=== PATIENT | female | born 1990 | race Caucasian/White ===

== ENCOUNTER 2022-02-26 17:33 | Emergency (ER) | payer OTHER ==
[2022-02-26 19:04] LABS: Absolute Lymphocytes (CBC) 2.4 K/uL (0.7-4.9)
[2022-02-26 19:16] LABS: Hematocrit 39.7 % (36.0-45.0); Lymphocytes % 35.9 % (15.3-44.8); MCV 90.2 fL (80-100); MPV 9.2 fL (7.6-11.3)
[2022-02-26 19:17] LABS: ALT/SGPT 15 U/L (13-56); AST/SGOT 8 U/L (15-37); Albumin 3.6 g/dL (3.4-5.0); Alkaline Phosphatase 37 U/L (45-117); BUN Blood Urea Nitrogen 13 mg/dL (7-18); Bicarbonate 26 mmol/L (21-32); Bilirubin Total 0.3 mg/dL (0.2-1.0); Glomerular Filtration Rate 113 ml/min (=/>90); Glucose Level 217 mg/dL (74-106); Lipase 103 U/L (73-393); Potassium 3.7 mmol/L (3.5-5.1); Protein, Total 6.9 g/dL (6.4-8.2); Sodium Level 138 mmol/L (136-145)
[2022-02-26 19:25] LABS: Urine Blood Negative (Negative); Urine Glucose 2+ (Negative); Urine Protein Negative (Negative)
[2022-02-26] MEDS ORDERED: NA CHLORIDE 0.9% 1,000 ML ONE (19:40)
[2022-02-26 19:51] LABS: Urine Bacteria None Seen /HPF (<20); Urine RBC <5 /HPF (None Seen)
[2022-02-26 20:28] LABS: SARS-COV-2 RT PCR NEGATIVE (NEGATIVE)
--- NOTE | 2022-02-26 21:01 | EDPHYS ---
Physician Documentation [facility] Name: Deloris Spencer Age: 31 yrs Sex: Female : 1990 Arrival Date: 02/26/2022 Time: 17:44 Bed 3 Private MD: ED Physician Segundo Oliveira HPI: 02/26 18:45 This 31 yrs old Female presents to ER via Ambulatory with complaints of Possible DKA. cp 18:45 The patient or guardian reports hyperglycemia, that was potentially precipitated by no cp particular event. Onset: The symptoms/episode began/occurred 1 week(s) ago. Associated signs and symptoms: Pertinent positives: nausea, Pertinent negatives: diarrhea, vomiting. 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 - Social history:: Smoking status: unknown. ROS: 18:50 Constitutional: Negative for body aches, chills, fever, poor PO intake. cp 18:50 Eyes: Negative for injury, pain, redness, and discharge. cp 18:50 ENT: Negative for drainage from ear(s), ear pain, sore throat, difficulty swallowing, difficulty handling secretions. 18:50 Cardiovascular: Negative for chest pain, palpitations. 18:50 Respiratory: Negative for cough, shortness of breath, wheezing. 18:50 Abdomen/GI: Positive for nausea, Negative for abdominal pain, vomiting, diarrhea, constipation. 18:50 Neuro: Negative for altered mental status, headache, syncope, weakness. 18:50 All other systems are negative. Exam: 18:55 Constitutional: The patient appears in no acute distress, alert, awake, comfortable, cp non-toxic, well developed, well nourished. 18:55 Head/Face: Normocephalic, atraumatic. cp 18:55 Eyes: Periorbital structures: appear normal, Conjunctiva: normal, no exudate, no injection, Sclera: no appreciated abnormality, Lids and lashes: appear normal, bilaterally. 18:55 ENT: External ear(s): are unremarkable, Nose: is normal, Mouth: Lips: moist, Oral mucosa: pink and intact, moist, Posterior pharynx: is normal, airway is patent, no erythema, no exudate. 18:55 Neck: ROM/movement: is normal, is supple, without pain, no range of motions limitations. 18:55 Chest/axilla: Inspection: normal. 18:55 Cardiovascular: Rate: normal, Rhythm: regular. 18:55 Respiratory: the patient does not display signs of respiratory distress, Respirations: normal, no use of accessory muscles, no retractions, labored breathing, is not present, Breath sounds: are clear throughout, no decreased breath sounds, no stridor, no wheezing. 18:55 Abdomen/GI: Inspection: abdomen appears normal, Palpation: abdomen is soft and non-tender, in all quadrants. 18:55 Back: pain, is absent, ROM is normal. 18:55 Skin: cellulitis, is not appreciated, consistent with psoriasis, and is diffusely located. 18:55 Neuro: Orientation: to person, place \T\ time. Mentation: is normal, Motor: moves all fours, strength is normal, Sensation: is normal. Vital Signs: 18:15 BP 120 / 84; Pulse 80; Resp 18; Temp 97.9(O); Pulse Ox 100% on R/A; Weight 69.4 kg; db Height 5 ft. 6 in. (167.64 cm); Pain 5/10; 19:27 BP 112 / 78; Pulse 85; Resp 19 S; Pulse Ox 100% on R/A; as6 20:48 BP 107 / 77; Pulse 77; Resp 20 S; Pulse Ox 99% on R/A; as6 18:15 Body Mass Index 24.69 (69.40 kg, 167.64 cm) db MDM: 18:22 Patient medically screened. cp 21:00 Data reviewed: vital signs, nurses notes, lab test result(s). cp 21:00 Consideration of Admission/Observation Escalation of care including cp admission/observation considered. Care significantly affected by the following chronic conditions: Diabetes. Counseling: I had a detailed discussion with the patient and/or guardian regarding: the historical points, exam findings, and any diagnostic results supporting the discharge/admit diagnosis, lab results, to return to the emergency department if symptoms worsen or persist or if there are any questions or concerns that arise at home. 02/26 18:32 Order name: Glucose, Ancillary Testing; Complete Time: 18:37 EDCT 02/26 18:37 Order name: CBC with Diff; Complete Time: 19:31 cp 02/26 19:31 Interpretation: Normal except: EOSINOPHIL % 5.3. 02/26 18:37 Order name: CMP; Complete Time: 19:31 cp 02/26 20:35 Interpretation: Normal except: GLUC 217; AST 8; ALK 37. 02/26 18:37 Order name: Lipase; Complete Time: 19:31 cp 02/26 18:37 Order name: Urine Microscopic Only; Complete Time: 20:34 cp 02/26 20:34 Interpretation: Reviewed. 02/26 18:37 Order name: Ketone, Serum; Complete Time: 19:31 cp 02/26 19:16 Interpretation: Reviewed. 02/26 18:37 Order name: IV Saline Lock; Complete Time: 18:57 02/26 18:37 Order name: Labs collected and sent; Complete Time: 18:57 cp 02/26 19:16 Order name: COVID-19/FLU A+B; Complete Time: 20:34 cp 02/26 19:25 Order name: Urine Dipstick-Ancillary; Complete Time: 19:31 EDCT 02/26 19:39 Order name: Urine --Ancillary (enter results); Complete Time: 20:34 wm Administered Medications: 19:41 Drug: NS 0.9% 1000 ml Route: IV; Rate: 1 bolus; Site: right antecubital; aa9 21:06 Follow up: Response: No adverse reaction; IV Status: Completed infusion; IV Intake: aa9 1000ml Disposition Summary: 02/26/22 21:00 Discharge Ordered Location: Home cp Problem: an acute exacerbation cp Symptoms: have improved cp Condition: Stable cp Diagnosis - Diabetes mellitus due to underlying condition with hyperglycemia cp Followup: cp - With: Private Physician - When: 2 - 3 days - Reason: Worsening of condition Discharge Instructions: - Discharge Summary Sheet cp - Type 1 Diabetes Mellitus, Diagnosis, Adult cp - Hyperglycemia cp - Form - Daily Diabetes Record cp - Blood Glucose Monitoring, Adult cp - Diabetes Mellitus and Nutrition, Adult cp Forms: - Medication Reconciliation Form cp - Thank You Letter cp - Antibiotic Education cp - Prescription Opioid Use cp Prescriptions: - Zofran 4 mg Oral Tablet - take 1 tablet by ORAL route every 12 hours As needed; 20 tablet; Refills: 0, cp Product Selection Permitted Addendum: 03/01/2022 01:04 Co-signature as Attending Physician, Segundo Oliveira MD. r n Signatures: Dispatcher [employer] EDMS Segundo Oliveira MD MD rn Jorge Alberto Alfaro PA PA cp Bertha Linder RN RN aa9 Vicki Rodrigez RN RN db Corrections: (The following items were deleted from the chart) 02/26 20:35 20:35 Normal except: GLUC 217. cp cp 02/27 19:33 19:32 This 31 yrs old Female presents to ER via Ambulatory with complaints of Possible cp DKA. cp
--- NOTE | 2022-02-26 21:01 | ER ---
Nurse's Notes [facility] Name: Deloris Spencer Age: 31 yrs Sex: Female : 1990 Arrival Date: 02/26/2022 Time: 17:44 Bed 3 Private MD: Diagnosis: Diabetes mellitus due to underlying condition with hyperglycemia Presentation: 02/26 18:15 Chief complaint: Patient states: high glucose reading x 1 week. states highest was 518. db Glucose during triage 275. Complains of nausea, tired, and headache. patient is on antibiotics for BV. Coronavirus screen: Vaccine status: Patient reports being unvaccinated. Client denies travel out of the [place] in the last 14 days. At this time, the client does not indicate any symptoms associated with coronavirus-19. Ebola Screen: Patient negative for fever greater than or equal to 101.5 degrees Fahrenheit, and additional compatible Ebola Virus Disease symptoms Patient denies exposure to infectious person. Patient denies travel to an Ebola-affected area in the 21 days before illness onset. No symptoms or risks identified at this time. Initial Sepsis Screen: Does the patient meet any 2 criteria? No. Patient's initial sepsis screen is negative. Does the patient have a suspected source of infection? No. Patient's initial sepsis screen is negative. Risk Assessment: Do you want to hurt yourself or someone else? Patient reports no desire to harm self or others. Onset of symptoms was February 26, 2022. 18:15 Method Of Arrival: Ambulatory db 18:15 Acuity: ELLIE 3 db Triage Assessment: 18:29 General: Appears in no apparent distress. comfortable, Behavior is calm, cooperative, db quiet. Pain: Complains of pain in head. Neuro: No deficits noted. Level of Consciousness is awake, alert, obeys commands, Oriented to person, place, time, situation. Respiratory: No deficits noted. Airway is patent Respiratory effort is even, unlabored, Respiratory pattern is regular, symmetrical. 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 - Social history:: Smoking status: unknown. Screenin:32 [facility] ED Fall Risk Assessment (Adult) History of falling in the last 3 months, db including since admission No falls in past 3 months (0 pts) Confusion or Disorientation No (0 pts) Intoxicated or Sedated No (0 pts) Impaired Gait No (0 pts) Mobility Assist Device Used No (0 pt) Altered Elimination No (0 pt) Score/Fall Risk Level 0 - 2 = Low Risk Oriented to surroundings, Maintained a safe environment, Educated pt \\T\\ family on fall prevention, incl call for assistance when getting out of bed. Abuse screen: Denies threats or abuse. Denies injuries from another. Nutritional screening: No deficits noted. Tuberculosis screening: No symptoms or risk factors identified. Assessment: 18:32 Reassessment: Patient appears in no apparent distress at this time. Patient is alert, db oriented x 3, equal unlabored respirations, skin warm/dry/pink. See triage for initial assessment. 19:27 General: "I have a slight headache and I feel fatigued" . as6 20:48 Reassessment: Patient appears in no apparent distress at this time. as6 Vital Signs: 18:15 BP 120 / 84; Pulse 80; Resp 18; Temp 97.9(O); Pulse Ox 100% on R/A; Weight 69.4 kg; db Height 5 ft. 6 in. (167.64 cm); Pain 5/10; 19:27 BP 112 / 78; Pulse 85; Resp 19 S; Pulse Ox 100% on R/A; as6 20:48 BP 107 / 77; Pulse 77; Resp 20 S; Pulse Ox 99% on R/A; as6 18:15 Body Mass Index 24.69 (69.40 kg, 167.64 cm) db ED Course: 17:44 Patient arrived in ED. am2 17:50 Jorge Alberto Alfaro PA is PHCP. cp 17:50 Segundo Oliveira MD is Attending Physician. cp 18:26 Vicki Rodrigez, TIMOTHY is Primary Nurse. db 18:29 Triage completed. db 18:29 Arm band placed on right wrist. db 18:50 Inserted saline lock: 20 gauge in right antecubital area, using aseptic technique. db Blood collected. 19:03 Patient has correct armband on for positive identification. Bed in low position. Call db light in reach. Side rails up X 1. Pulse ox on. NIBP on. Warm blanket given. 19:05 Report given to car shifter RN. db 19:41 COVID-19/FLU A+B Sent. aa9 19:51 Primary Nurse role handed off by Vicki Rodrigez, TIMOTHY 20:47 Adam Mac, RN is Primary Nurse. as6 21:06 No provider procedures requiring assistance completed. IV discontinued, intact, aa9 bleeding controlled, No redness/swelling at site. Pressure dressing applied. Administered Medications: :41 Drug: NS 0.9% 1000 ml Route: IV; Rate: 1 bolus; Site: right antecubital; aa9 21:06 Follow up: Response: No adverse reaction; IV Status: Completed infusion; IV Intake: aa9 1000ml Medication: 18:32 VIS not applicable for this client. db Intake: 21:06 IV: 1000ml; Total: 1000ml. aa9 Outcome: 21:00 Discharge ordered by . lavon 21:06 Discharged to home ambulatory. aa9 21:06 Condition: stable 21:06 Discharge instructions given to patient, Instructed on discharge instructions, follow up and referral plans. medication usage, Demonstrated understanding of instructions, follow-up care, medications, Prescriptions given X 1. 21:07 Patient left the ED. aa9 Signatures: Jorge Alberto Alfaro PA PA cp Moreno, Amanda am2 Demetria Omalley Adam Mac, TIMOTHY RN as6 Bertha Linder RN RN aa9 Vicki Rodrigez, TIMOTHY RN db
[2022-02-26 23:27] VITALS: TEMP 97.9
[2022-02-26 23:38] VITALS: BP 107/77; O2SAT 99
== END 2022-02-26 21:07 | disposition home or self-care (01) ==
LOC: ER 17:33
DX: E11.65 Type 2 diabetes mellitus with hyperglycemia (principal); Z20.822 Contact with and (suspected) exposure to COVID-19; Z79.4 Long term (current) use of insulin
CPT/HCPCS: 85025; 36415; 82010; 81025; 82947; 83690; 80053; 0240U; 96360; 99284; J7030; 81003; 81015